=== PATIENT | male | born 1975 | race Hispanic/Latino ===

== ENCOUNTER 2017-11-15 11:45 | Emergency (ER) | payer MEDICARE ==
[2017-11-15 12:21] LABS: Basophils % (Auto) 0.3 % (0.0-1.8); Eosinophils # (Auto) 0.1 K/mm3 (0.0-0.4); Eosinophils % (Auto) 0.9 % (0.0-4.3); Hematocrit 42.9 % (35.5-45.6); Hemoglobin 14.5 gm/dl (11.8-15.2); Lymphocytes # (Auto) 0.8 K/mm3 (1.2-5.4); Lymphocytes % (Auto) 7.8 % (13.4-35.0); Mean Corpuscular HGB Conc 34 % (32-34); Mean Corpuscular Hemoglobin 30 pg (28-32); Mean Corpuscular Volume 90 fl (84-94); Monocytes # (Auto) 0.7 K/mm3 (0.0-0.8); Monocytes % (Auto) 6.9 % (0.0-7.3); Platelet Count 177 K/mm3 (140-440); Red Blood Count 4.79 M/mm3 (3.65-5.03); Red Cell Distribution Width 14.6 % (13.2-15.2)
--- NOTE | 2017-11-15 12:23 | Emergency Department Report ---
ED General Adult HPI - General Chief complaint: Syncope Stated complaint: LACERATION ABOVE RIGHT EYE, SYNCOPE Time Seen by Provider: 11/15/17 12:20 Source: patient Mode of arrival: Ambulatory Limitations: No Limitations - History of Present Illness Initial comments: Patient is a 42-year-old male who is presenting status post seizure with a laceration on the forehead. Patient states that he has a history of traumatic brain injury and takes Keppra for seizures. Patient's been out of his Keppra for several months. Patient has seizure this morning that resulted in a fall. Patient's has a laceration to the right forehead. Patient states he has a generalized headache that is 6 out of 10 in severity. There is no neck pain or injury at this time. Patient denies any nausea vomiting diarrhea fevers chills no rigidity at this time - Related Data Previous Rx's Medication Instructions Recorded Last Taken Type Ibuprofen [Motrin] 800 mg PO Q8HR PRN #15 tablet 11/15/17 Unknown Rx levETIRAcetam [Keppra] 500 mg PO BID #60 tablet 11/15/17 Unknown Rx Allergies Allergy/AdvReac Type Severity Reaction Status Date / Time No Known Allergies Allergy Verified 03/15/15 05:04 ED Review of Systems ROS: Stated complaint: LACERATION ABOVE RIGHT EYE, SYNCOPE Other details as noted in HPI Comment: All other systems reviewed and negative ED Past Medical Hx - Past Medical History Previous Medical History?: Yes Hx Hypertension: Yes Hx Diabetes: Yes Hx Seizures: Yes - Surgical History Past Surgical History?: Yes 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 Surgical History: 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) - Social History Smoking Status: Current Every Day Smoker Substance Use Type: Alcohol, Prescribed - Medications Home Medications: Home Medications Medication Instructions Recorded Confirmed Last Taken Type Ibuprofen [Motrin] 800 mg PO Q8HR PRN #15 tablet 11/15/17 Unknown Rx levETIRAcetam [Keppra] 500 mg PO BID #60 tablet 11/15/17 Unknown Rx ED Physical Exam - General Limitations: No Limitations General appearance: alert, in no apparent distress - Head Head exam: Present: normocephalic, other (4 cm laceration at the right eyebrow) - Eye Eye exam: Present: normal appearance - ENT ENT exam: Present: mucous membranes moist - Neck Neck exam: Present: normal inspection - Respiratory Respiratory exam: Present: normal lung sounds bilaterally. Absent: respiratory distress - Cardiovascular Cardiovascular Exam: Present: regular rate, normal rhythm. Absent: systolic murmur, diastolic murmur, rubs, gallop - GI/Abdominal GI/Abdominal exam: Present: soft, normal bowel sounds - Rectal Rectal exam: Present: deferred - Extremities Exam Extremities exam: Present: normal inspection - Back Exam Back exam: Present: normal inspection - Neurological Exam Neurological exam: Present: alert, oriented X3, CN II-XII intact, other (GCS of 15) - Psychiatric Psychiatric exam: Present: normal affect, normal mood - Skin Skin exam: Present: warm, dry, intact, normal color. Absent: rash ED Course Vital Signs 11/15/17 11:48 Temperature 97.8 F Pulse Rate 95 H Respiratory 22 Rate Blood Pressure 118/67 O2 Sat by Pulse 96 Oximetry - Laceration /Wound Repair Right Face Wound Location: head Wound Length (cm): 4 Wound's Depth, Shape: into muscle Wound Explored: clean Irrigated w/ Saline (ccs): 200 Betadine Prep?: Yes Anesthesia: 1% Lidocaine Suture Size/Type: 5:0, nylon Number of Sutures: 10 (running sutures) Layer Closure?: Yes Deep Layer Suture Size/Type: 5:0 Number Deep Layer Sutures: 4 Sterile Dressing Applied?: Yes Progress: Patient tolerated procedure well. There are no complications. ED Medical Decision Making - Lab Data Result diagrams: 11/15/17 12:05 11/15/17 12:05 - Medical Decision Making Patient loaded with Keppra. Patient's CT head and facial bones show no acute process. Discharged home at this time we'll refill of his Kera Critical care attestation.: If time is entered above; I have spent that time in minutes in the direct care of this critically ill patient, excluding procedure time. ED Disposition Clinical Impression: Laceration, Seizure, Medical non-compliance Closed head injury Qualifiers: Encounter type: initial encounter Qualified Code(s): S09.90XA - Unspecified injury of head, initial encounter Disposition: TO HOME OR SELFCARE Is pt being admited?: No Does the pt Need Aspirin: No Condition: Fair Instructions: Laceration (ED), Suture Care (ED), Minor Head Injury (ED), Epilepsy (ED) Additional Instructions: Sutures need to be removed in 5-7 days Prescriptions: Ibuprofen [Motrin] 800 mg PO Q8HR PRN #15 tablet PRN Reason: Pain levETIRAcetam [Keppra] 500 mg PO BID #60 tablet Referrals: PRIMARY CARE, [Primary Care Provider] - 3-5 Days
[2017-11-15] MEDS ORDERED: XYLOCAINE 1% 20 mL INFILTRATI ONE (12:24)
[2017-11-15] MEDS ORDERED: NACL 0.9% 1000 ML 1,000 ML IV ONE (12:24)
[2017-11-15] MEDS ORDERED: TORADOL IV ONE (12:24)
[2017-11-15 12:30] LABS: INR 0.95 (0.87-1.13)
[2017-11-15 12:45] LABS: BUN/Creatinine Ratio 19; Blood Urea Nitrogen 17 mg/dL (9-20); Calcium 9.1 mg/dL (8.4-10.2); Hemolysis Index 34
[2017-11-15] MEDS ORDERED: KEPPRA 1,000 MG/NS 0.75% 100ML 1,000 MG/100 ML BAG IV ONE (12:55)
--- NOTE | 2017-11-15 13:58 | Cat Scan Report ---
CT HEAD WITHOUT CONTRAST: HISTORY: Fall with right hand injury. TECHNIQUE: Sequential 2.5mm CT images. COMPARISON: none. FINDINGS: Right occipital craniectomy changes and right parietal ventricular shunt are noted. Correlate with history. Soft tissue laceration and small hematoma is identified in the right frontal region. Cerebral Parenchyma: Within normal limits. Cerebellum: Within normal limits. Brainstem: Within normal limits. Ventricles: Normal. Sella: Normal. Extra-axial spaces: Normal. Basal Cisterns: Normal. Intracranial Hemorrhage: None. Midline Shift: None. Calvarium: Normal. Sinuses: Normal. Mastoid Air Cells: Normal. Visualized Orbits: Normal. IMPRESSION: Right frontal soft tissue laceration and small hematoma. Surgical changes as described. No acute intracranial process is identified.
--- NOTE | 2017-11-15 14:00 | Cat Scan Report ---
CT FACIAL BONES WITHOUT CONTRAST: HISTORY: Following the right facial injury. TECHNIQUE: Helical CT images with sagittal and coronal CT reformations. FINDINGS: Soft tissue laceration in the right supraorbital region and small hematoma are identified. All paranasal sinuses are clear. No sinus wall fracture, fluid level or opacification. The orbital cavities are symmetric and intact. The mandible is intact. The skull base and upper cervical spine demonstrate no evidence for acute injury. IMPRESSION: Soft tissue injury as described. No facial bone fracture is detected.
[2017-11-15] MEDS ORDERED: NACL 0.9% 500 ML 500 ML IV ONE (14:50)
[2017-11-15 14:57] VITALS: BP 112/66
--- NOTE | 2017-11-15 15:42 | XRay Report ---
AP CHEST: HISTORY: Cough There is poor inspiration. Mild bilateral perihilar prominence is identified. This could represent congestive changes or bronchiolitis. No consolidation, pleural effusion or pneumothorax. Normal heart size. IMPRESSION: Mild bilateral perihilar prominence as described.
== END 2017-11-15 16:25 | disposition home or self-care (01) ==
LOC: ED 11:45
DX: S01.111A Laceration without foreign body of right eyelid and periocular area, initial encounter (principal); G40.909 Epilepsy, unspecified, not intractable, without status epilepticus; I10 Essential (primary) hypertension; E11.9 Type 2 diabetes mellitus without complications; F17.200 Nicotine dependence, unspecified, uncomplicated; X58.XXXA Exposure to other specified factors, initial encounter; Y93.89 Activity, other specified; Y92.89 Other specified places as the place of occurrence of the external cause; Y99.8 Other external cause status
CPT/HCPCS: 12052; 36415; 70450; 70486; 71045; 80048; 84484; 85025; 85610; 85670; 85730; 93005; 93010; 96361; 96374; 96375; 99285; J1885; J1953; J7030; J7040

== ENCOUNTER 2017-12-20 09:39 | Outpatient (CLI) | payer MEDICARE ==
[2017-12-20 10:27] LABS: Hemoglobin 13.9 gm/dl (11.8-15.2); Mean Corpuscular HGB Conc 33 % (32-34); Mean Corpuscular Hemoglobin 30 pg (28-32); Mean Corpuscular Volume 89 fl (84-94); Platelet Count 205 K/mm3 (140-440); Red Cell Distribution Width 15.1 % (13.2-15.2)
[2017-12-20 10:41] LABS: Alanine Aminotransferase 58 units/L (7-56); Albumin 3.8 g/dL (3.9-5); BUN/Creatinine Ratio 24; Blood Urea Nitrogen 12 mg/dL (9-20); Calcium 8.5 mg/dL (8.4-10.2); Hemolysis Index 10
--- NOTE | 2017-12-20 11:12 | XRay Report ---
CHEST 2 VIEWS INDICATION: Cough. 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 Normal cardiomediastinal silhouette. Clear lungs. Stable mid to lower thoracic spine degenerative spurring. CONCLUSION: No acute disease, as described. Thank you for the opportunity to participate in this patient's care.
== END 2017-12-20 09:40 | disposition home or self-care (01) ==
LOC: XRAY 09:39
PROVIDERS: ATTEND Family Medicine
DX: G40.89 Other seizures (principal); R60.9 Edema, unspecified; R05 Cough; M53.84 Other specified dorsopathies, thoracic region; Z98.2 Presence of cerebrospinal fluid drainage device; Z79.899 Other long term (current) drug therapy
CPT/HCPCS: 36415; 71046; 80053; 80177; 82607; 83880; 84443; 85027

== ENCOUNTER 2018-02-11 21:08 | Emergency (ER) | payer MEDICARE ==
[2018-02-11 21:42] VITALS: BP 120/82
[2018-02-11] MEDS ORDERED: NORCO 5/325 ONE (22:39)
[2018-02-11] MEDS ORDERED: NORCO 5/325 PO ONE (22:41)
--- NOTE | 2018-02-11 22:50 | XRay Report ---
FINAL REPORT EXAM: XR HUMERUS 2+V LT HISTORY: pain and injury/fall TECHNIQUE: Left humerus three views PRIORS: None. FINDINGS: There is acute traumatic fracture through the humeral neck with extension through the head of the humerus and along greater tuberosity. Articular surface appears intact. AC joint appears intact. No additional acute fractures are identified. No evidence for dislocation. IMPRESSION: Acute fracture through the left humeral head and neck
--- NOTE | 2018-02-11 22:51 | XRay Report ---
FINAL REPORT EXAM: XR FOREARM LT HISTORY: pain and injury/fall TECHNIQUE: PRIORS: Left forearm two views none. FINDINGS: No fracture is identified. The joint spaces are within normal limits. No focal bony lesion identified. No radiopaque foreign body seen. IMPRESSION: Negative no acute abnormality.
--- NOTE | 2018-02-11 23:17 | Emergency Department Report ---
ED Upper Extremity Inj HPI - General Chief Complaint: Extremity Injury, Upper Stated Complaint: LEFTARM PAIN Time Seen by Provider: 02/11/18 23:01 Source: patient Mode of arrival: Ambulatory Limitations: No Limitations, Language Barrier - History of Present Illness Initial Comments: Patient 42-year-old white male states he tripped and fell tonight while walking his dog landing on his left shoulder now complaining of pain and tingling the fingers there is no open wound or laceration or abrasion shoulder hurts with movement per patient MD Complaint: Injury to:: left, shoulder Onset/Timin -: hour(s) Other Extremity Injury: Shoulder: Left Other Injuries: none Handedness: right Place: home, outdoors Severity scale (0 -10): 5 Improves With: none Worsens With: movement of extremity Context: fall Associated Symptoms: heard/felt popping sensat. denies: weakness, numbness, neck pain, suspects foreign body, nausea/vomiting - Related Data Previous Rx's Medication Instructions Recorded Last Taken Type ALBUTEROL Inhaler [ProAir HFA 2 puff IH QID PRN #1 inhalation 11/15/17 Unknown Rx Inhaler] Azithromycin [Zithromax] 250 mg PO DAILY #6 tablet 11/15/17 Unknown Rx Benzonatate [Tessalon Perle] 100 mg PO TID #9 capsule 11/15/17 Unknown Rx Ibuprofen [Motrin] 800 mg PO Q8HR PRN #15 tablet 11/15/17 Unknown Rx levETIRAcetam [Keppra] 500 mg PO BID #60 tablet 11/15/17 Unknown Rx HYDROcodone/ACETAMINOPHEN [Redding 1 each PO QID #15 tablet 02/11/18 Unknown Rx 7.5-325 Tablet] Allergies Allergy/AdvReac Type Severity Reaction Status Date / Time No Known Allergies Allergy Verified 03/15/15 05:04 ED Review of Systems ROS: Stated complaint: LEFTARM PAIN Other details as noted in HPI Constitutional: denies: chills, fever Eyes: denies: eye pain, eye discharge, vision change ENT: denies: ear pain, throat pain Respiratory: denies: cough, shortness of breath, wheezing Cardiovascular: denies: chest pain, palpitations Endocrine: no symptoms reported Gastrointestinal: denies: abdominal pain, nausea, diarrhea Genitourinary: as per HPI Musculoskeletal: myalgia (left lateral shoulder pain ) Skin: denies: rash, lesions Neurological: denies: headache, weakness, paresthesias Psychiatric: denies: anxiety, depression Hematological/Lymphatic: denies: easy bleeding, easy bruising ED Past Medical Hx - Past Medical History Hx Hypertension: Yes Hx Diabetes: Yes Hx Seizures: Yes - Surgical History Additional Surgical History: 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 shunt (2009) - Social History Smoking Status: Current Every Day Smoker Substance Use Type: None - Medications Home Medications: Home Medications Medication Instructions Recorded Confirmed Last Taken Type ALBUTEROL Inhaler [ProAir HFA 2 puff IH QID PRN #1 inhalation 11/15/17 Unknown Rx Inhaler] Azithromycin [Zithromax] 250 mg PO DAILY #6 tablet 11/15/17 Unknown Rx Benzonatate [Tessalon Perle] 100 mg PO TID #9 capsule 11/15/17 Unknown Rx Ibuprofen [Motrin] 800 mg PO Q8HR PRN #15 tablet 11/15/17 Unknown Rx levETIRAcetam [Keppra] 500 mg PO BID #60 tablet 11/15/17 Unknown Rx HYDROcodone/ACETAMINOPHEN [Red[place] 1 each PO QID #15 tablet 02/11/18 Unknown Rx 7.5-325 Tablet] ED Physical Exam - General Limitations: No Limitations, Language Barrier General appearance: alert, in no apparent distress - Head Head exam: Present: atraumatic, normocephalic - Eye Eye exam: Present: normal appearance - ENT ENT exam: Present: mucous membranes moist - Neck Neck exam: Present: normal inspection, full ROM. Absent: lymphadenopathy, thyromegaly - Expanded Neck Exam Expanded Neck exam: Absent: tenderness, midline deformity, anterior neck swelling, thyroid mass, carotid bruit, tracheal deviation - Respiratory Respiratory exam: Present: normal lung sounds bilaterally. Absent: respiratory distress - Cardiovascular Cardiovascular Exam: Present: regular rate, normal rhythm. Absent: systolic murmur, diastolic murmur, rubs, gallop - GI/Abdominal GI/Abdominal exam: Present: soft, normal bowel sounds. Absent: distended, tenderness, guarding, rebound, rigid, organomegaly, mass, bruit, pulsatile mass - Rectal Rectal exam: Present: deferred - Extremities Exam Extremities exam: Present: tenderness, normal capillary refill, calf tenderness. Absent: pedal edema, joint swelling - Expanded Upper Extremity Exam Left Shoulder Exam: Present: tenderness, swelling, other (left lateral shoulder tenderness mild swelling no ecchymosis no deformity no eythema pain with movemen and palpation). Absent: abrasion, laceration, ecchymosis, deformity, crepidus, dislocation, erythema, tenderness over AC joint Upper Arm exam: Present: tenderness, swelling. Absent: abrasion, laceration, ecchymosis, deformity, crepidus, dislocation, erythema Elbow exam: Present: normal inspection, full ROM Forearm Wrist exam: Present: normal inspection, full ROM Hand Wrist exam: Present: normal inspection, full ROM Neuro motor exam: Present: wrist extension intact, thumb opposition intact, thumb IP flexion intact, thumb adduction intact, fingers 2-5 abduction intact Neurosensory exam: Present: 2-point discrimination Vascular: Present: normal capillary refill, radial pulse, brachial pulse, ulnar pulse. Absent: vascular compromise, Pallo, pulse deficit radial art, pulse deficit ulnar art, pulse deficit brachial art - Back Exam Back exam: Present: normal inspection, full ROM. Absent: tenderness, CVA tenderness (R), CVA tenderness (L), muscle spasm, paraspinal tenderness, vertebral tenderness, rash noted - Neurological Exam Neurological exam: Present: alert, oriented X3, CN II-XII intact, normal gait, reflexes normal - Expanded Neurological Exam Expanded Patient oriented to: Present: person, place, time Speech: Present: fluid speech Cranial nerves: EOM's Intact: Normal, Gag Reflex: Normal, Tongue Deviation: Normal, Nystagmus: Normal, Facial Sensation: Normal Sensory exam: Upper Extremity Light Touch: Normal, Upper Extremity Temperature: Normal, UE 2 Point Discrimination: Normal Motor strength exam: RUE: 5, LUE: 5, RLE: 5, LLE: 5 DTR: bicep (R): 2+, bicep (L): 2+, tricep (R): 2+, tricep (L): 2+ Best Eye Response (Sims): (4) open spontaneously Best Motor Response (Sarika): (6) obeys commands Best Verbal Response (Sims): (5) oriented Sarika Total: 15 - Psychiatric Psychiatric exam: Present: normal affect, normal mood - Skin Skin exam: Present: warm, dry, intact, normal color. Absent: rash ED Course Vital Signs 04/08/18 21:35 Temperature 97.9 F Pulse Rate 87 Respiratory 18 Rate Blood Pressure 120/82 O2 Sat by Pulse 100 Oximetry ED Medical Decision Making - Radiology Data Radiology results: report reviewed, image reviewed acute fracture through humeral head and neck - Medical Decision Making Patient 42-year-old white male states he tripped and fell tonight while walking his dog landing on his left shoulder now complaining of pain and tingling the fingers there is no open wound or laceration or abrasion shoulder hurts with movement per patient , exam: no ecchymosis mild swelling rom restricted by pain grisps equal , rad pulse +2, no numbness , unble to tolerare shoulder drop due to pain, pronation supination 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 sling and swath lortab, follow up with ortho pt verbalized agreement and understanding of same. Critical care attestation.: If time is entered above; I have spent that time in minutes in the direct care of this critically ill patient, excluding procedure time. ED Disposition Clinical Impression: Closed fracture of proximal end of left humerus Qualifiers: Encounter type: initial encounter Fracture morphology: other fracture Fracture alignment: nondisplaced Qualified Code(s): S42.295A - Other nondisplaced fracture of upper end of left humerus, initial encounter for closed fracture Disposition: DC-01 TO HOME OR SELFCARE Is pt being admited?: No Does the pt Need Aspirin: No Condition: Good Instructions: Arm Fracture in Adults (ED) Prescriptions: HYDROcodone/ACETAMINOPHEN [Redding 7.5-325 Tablet] 1 each PO QID #15 tablet Referrals: ANDRE FITZGERALD MD [Staff Physician] - 3-5 Days Forms: Work/School Release Form(ED) Time of Disposition: 23:29
== END 2018-02-11 23:56 | disposition home or self-care (01) ==
LOC: ED 21:08
DX: S42.202A Unspecified fracture of upper end of left humerus, initial encounter for closed fracture (principal); I10 Essential (primary) hypertension; E11.9 Type 2 diabetes mellitus without complications; F17.200 Nicotine dependence, unspecified, uncomplicated; W01.0XXA Fall on same level from slipping, tripping and stumbling without subsequent striking against object, initial encounter; Y93.89 Activity, other specified; Y92.89 Other specified places as the place of occurrence of the external cause; Y99.8 Other external cause status
CPT/HCPCS: 99283

== ENCOUNTER 2018-02-23 08:38 | Outpatient (CLI) | payer MEDICARE ==
--- NOTE | 2018-02-23 13:14 | XRay Report ---
LEFT SHOULDER RADIOGRAPHS INDICATION: Left shoulder pain. COMPARISON: 02/11/2018 left humerus views. FINDINGS: Frontal and right views of the left shoulder demonstrate stable left humeral neck fracture with the humeral articular surface well positioned against the glenoid. Intact acromioclavicular joint with normal imaged scapula, ribs and lung. CONCLUSION: No significant interval change in known left humeral neck fracture, as described. Thank you for the opportunity to participate in this patient's care.
== END 2018-02-23 08:39 | disposition home or self-care (01) ==
LOC: XRAY 08:38
PROVIDERS: ATTEND Orthopaedic Surgery
DX: M25.512 Pain in left shoulder (principal); S42.292D Other displaced fracture of upper end of left humerus, subsequent encounter for fracture with routine healing; X58.XXXD Exposure to other specified factors, subsequent encounter

== ENCOUNTER 2018-03-01 14:17 | Emergency (ER) | payer MEDICARE ==
[2018-03-01 14:45] VITALS: BP 128/78
--- NOTE | 2018-03-01 16:38 | Emergency Department Report ---
ED Recheck HPI - General Chief Complaint: Extremity Problem,Nontraumatic Stated Complaint: LEFT SHOULDER PAIN Time Seen by Provider: 03/01/18 16:01 Source: patient Mode of arrival: Ambulatory Limitations: No Limitations - History of Present Illness Initial Comments: This is a 42-year-old male nontoxic, well nourished in appearance, no acute signs of distress presents to the ED with c/o of left shoulder pain status post fall. Patient stated he was diagnosed with left shoulder fracture couple of weeks ago and followed Dr. Ivy. Patient stated his next appointment is next Monday. Patient denies any new trauma. Patient stated he is in need of Percocet refill for pain. Patient denies any joint redness, joint swelling, fever, chills, nausea, vomiting, chest pain or shortness of breathe. Patient denies any allergies or significant past medical history. MD Complaint: medication refill request Initial Visit For: other (fracture humerus bone) Returns Today for: request for prescription Symptoms Since Prior Visit: no new symptoms Associated Symptoms: none. denies: fever, chills, chest pain, shortness of breath, rash, malaise, nasuea, abdominal pain - Related Data Previous Rx's Medication Instructions Recorded Last Taken Type ALBUTEROL Inhaler [ProAir HFA 2 puff IH QID PRN #1 inhalation 11/15/17 Unknown Rx Inhaler] Azithromycin [Zithromax] 250 mg PO DAILY #6 tablet 11/15/17 Unknown Rx Benzonatate [Tessalon Perle] 100 mg PO TID #9 capsule 11/15/17 Unknown Rx Ibuprofen [Motrin] 800 mg PO Q8HR PRN #15 tablet 11/15/17 Unknown Rx levETIRAcetam [Keppra] 500 mg PO BID #60 tablet 11/15/17 Unknown Rx HYDROcodone/ACETAMINOPHEN [Celestine 1 each PO QID #15 tablet 02/11/18 Unknown Rx 7.5-325 Tablet] Ibuprofen [Motrin] 600 mg PO Q8H PRN #30 tablet 03/01/18 Unknown Rx Allergies Allergy/AdvReac Type Severity Reaction Status Date / Time No Known Allergies Allergy Verified 03/15/15 05:04 ED Review of Systems ROS: Stated complaint: LEFT SHOULDER PAIN Other details as noted in HPI Constitutional: denies: chills, fever Eyes: denies: eye pain, eye discharge, vision change ENT: denies: ear pain, throat pain Respiratory: denies: cough, shortness of breath, wheezing Cardiovascular: denies: chest pain, palpitations Endocrine: no symptoms reported Gastrointestinal: denies: abdominal pain, nausea, diarrhea Genitourinary: denies: urgency, dysuria Musculoskeletal: arthralgia. 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) - Social History Smoking Status: Current Every Day Smoker Substance Use Type: None - Medications Home Medications: Home Medications Medication Instructions Recorded Confirmed Last Taken Type ALBUTEROL Inhaler [ProAir HFA 2 puff IH QID PRN #1 inhalation 11/15/17 Unknown Rx Inhaler] Azithromycin [Zithromax] 250 mg PO DAILY #6 tablet 11/15/17 Unknown Rx Benzonatate [Tessalon Perle] 100 mg PO TID #9 capsule 11/15/17 Unknown Rx Ibuprofen [Motrin] 800 mg PO Q8HR PRN #15 tablet 11/15/17 Unknown Rx levETIRAcetam [Keppra] 500 mg PO BID #60 tablet 11/15/17 Unknown Rx HYDROcodone/ACETAMINOPHEN [Celestine 1 each PO QID #15 tablet 02/11/18 Unknown Rx 7.5-325 Tablet] Ibuprofen [Motrin] 600 mg PO Q8H PRN #30 tablet 03/01/18 Unknown Rx ED Physical Exam - General Limitations: No Limitations General appearance: alert, in no apparent distress - Head Head exam: Present: atraumatic, normocephalic - Eye Eye exam: Present: normal appearance - ENT ENT exam: Present: mucous membranes moist - Neck Neck exam: Present: normal inspection - Respiratory Respiratory exam: Present: normal lung sounds bilaterally. Absent: respiratory distress - Cardiovascular Cardiovascular Exam: Present: regular rate, normal rhythm. Absent: systolic murmur, diastolic murmur, rubs, gallop - GI/Abdominal GI/Abdominal exam: Present: soft, normal bowel sounds - Rectal Rectal exam: Present: deferred - Extremities Exam Extremities exam: Present: normal inspection, tenderness, normal capillary refill. Absent: full ROM, pedal edema, joint swelling, calf tenderness - Expanded Upper Extremity Exam Left General: Present: normal inspection Shoulder Exam: Present: normal inspection, tenderness. Absent: full ROM, swelling, abrasion, laceration, ecchymosis, deformity, crepidus, dislocation, erythema, tenderness over AC joint Upper Arm exam: Present: normal inspection, full ROM Elbow exam: Present: normal inspection, full ROM Forearm Wrist exam: Present: normal inspection, full ROM Hand Wrist exam: Present: normal inspection, full ROM Neuro motor exam: Present: wrist extension intact, thumb opposition intact, thumb IP flexion intact, thumb adduction intact, fingers 2-5 abduction intact Neurosensory exam: Present: 2-point discrimination, radial nerve intact, ulnar nerve intact, median nerve intact Vascular: Present: vascular compromise, normal capillary refill, radial pulse, brachial pulse, ulnar pulse - Back Exam Back exam: Present: normal inspection, full ROM - Neurological Exam Neurological exam: Present: alert, oriented X3, normal gait - Psychiatric Psychiatric exam: Present: normal affect, normal mood - Skin Skin exam: Present: warm, dry, intact, normal color. Absent: rash ED Course Vital Signs 03/01/18 14:41 Temperature 97.8 F Pulse Rate 71 Respiratory 18 Rate Blood Pressure 128/78 O2 Sat by Pulse 99 Oximetry - Reevaluation(s) Reevaluation #1: 03/01/18 16:39 Patient is speaking in full sentences with no signs of distress noted. ED Recheck MDM - Medical Decision Making This is a 42-year-old male that presents with medication refill. Patient stable was examined by me. Patient is requesting for Percocet refill. I ran the [facility] database which indicates the patient received 10 mg of Celestine on 02/26/2018 with 30 pills for 8 days. Due to this, patient is discharged with Motrin. Patient denies any new symptoms. Patient was referred to Follow-up with a orthopedic doctor in 3-5 days or if symptoms worsen and continue return to emergency room as soon as possible. At time of discharge, the patient does not seem toxic or ill in appearance. No acute signs of distress noted. Patient agrees to discharge treatment plan of care. No further questions noted by the patient. Critical care attestation.: If time is entered above; I have spent that time in minutes in the direct care of this critically ill patient, excluding procedure time. ED Disposition Clinical Impression: Medication refill Disposition: - TO HOME OR SELFCARE Is pt being admited?: No Does the pt Need Aspirin: No Condition: Stable Additional Instructions: Follow-up with a orthopedic doctor in 3-5 days or if symptoms worsen and continue return to emergency room as soon as possible. Prescriptions: Ibuprofen [Motrin] 600 mg PO Q8H PRN #30 tablet PRN Reason: Pain Referrals: PRIMARY CAREMD [Primary Care Provider] - 3-5 Days ANDRE IVY MD [Staff Physician] - 3-5 Days [facility] [Outside] - 3-5 Days
[2018-03-01] MEDS ORDERED: MOTRIN PO ONE (16:45)
== END 2018-03-01 16:56 | disposition home or self-care (01) ==
LOC: ED 14:17
DX: M25.512 Pain in left shoulder (principal); I10 Essential (primary) hypertension; E11.9 Type 2 diabetes mellitus without complications; F17.200 Nicotine dependence, unspecified, uncomplicated
CPT/HCPCS: 99282

== ENCOUNTER 2018-03-09 16:41 | Outpatient (CLI) | payer MEDICARE | END 2018-03-09 16:42 | disposition home or self-care (01) | LOC: VAS 16:41 | PROVIDERS: ATTEND Family Medicine | DX: M79.604 Pain in right leg (principal); M79.605 Pain in left leg; R60.0 Localized edema | CPT/HCPCS: 93970 ==

== ENCOUNTER 2018-05-02 22:51 | Emergency (ER) | payer MEDICARE ==
[2018-05-02] MEDS ORDERED: TYLENOL PO ONE (23:05)
[2018-05-02] MEDS ORDERED: TYLENOL ONE (23:06)
[2018-05-02 23:08] VITALS: BP 147/85
--- NOTE | 2018-05-02 23:53 | XRay Report ---
FINAL REPORT EXAM: XR SHOULDER 2+V LT HISTORY: pain and LROM s/p L shoulder injury TECHNIQUE: Left shoulder two views PRIORS: Comparison made to the exam of February 11, 2018 FINDINGS: There is fracture through the neck of the humerus. There is some bony callus formation along with some displacement. There is some lucency remaining along the fracture lines. Findings are concerning for additional acute fracture in addition to the chronic findings. IMPRESSION: Healing fracture of the humeral neck. There is some lucency remaining through the fracture line and additional acute component is not excluded.
[2018-05-03] MEDS ORDERED: MOTRIN PO ONE (05:12)
[2018-05-03] MEDS ORDERED: PERCOCET 5/325 ONE (05:12)
[2018-05-03] MEDS ORDERED: PERCOCET 5/325 PO ONE (05:14)
--- NOTE | 2018-05-03 05:49 | Emergency Department Report ---
Upper Extremity - HPI Chief Complaint: Extremity Injury, Upper Stated Complaint: ARM PAIN Time Seen by Provider: 05/03/18 05:12 Upper Extremity: Left Shoulder Occurred When: Today Mechanism: Fall Severity: severe Symptoms: Yes Pain with Movement, Yes Limited Range of Movement, Yes Numbness, Yes Swelling, No Bruising/Ecchymosis, No Laceration or Abrasion Other History: 42-year-old male reinjured of the left shoulder. Patient reports he fell out the bed and landed on his left shoulder tonight. Patient reports that he had injured his shoulder back in February and was scheduled to start physical therapy. Patient reports his pain is a 10 out of 10. Has a past medical history of brain surgery where shunt in 2009, hypertension, diabetes. ED Review of Systems ROS: Stated complaint: ARM PAIN Other details as noted in HPI Musculoskeletal: joint swelling (left shoulder), arthralgia (left shoulder) ED Past Medical Hx - Past Medical History Previous Medical History?: Yes Hx Hypertension: Yes Hx Diabetes: Yes Hx Seizures: Yes - Surgical History Past Surgical History?: Yes Additional Surgical History: CONDITIONER TUMBLER shunt (2009) - Social History Smoking Status: Current Every Day Smoker Substance Use Type: None - Medications Home Medications: Home Medications Medication Instructions Recorded Confirmed Last Taken Type ALBUTEROL Inhaler [ProAir HFA 2 puff IH QID PRN #1 inhalation 11/15/17 Unknown Rx Inhaler] Azithromycin [Zithromax] 250 mg PO DAILY #6 tablet 11/15/17 Unknown Rx Benzonatate [Tessalon Perle] 100 mg PO TID #9 capsule 11/15/17 Unknown Rx levETIRAcetam [Keppra] 500 mg PO BID #60 tablet 11/15/17 Unknown Rx HYDROcodone/ACETAMINOPHEN [[place] 1 each PO QID #15 tablet 02/11/18 Unknown Rx 7.5-325 Tablet] Ibuprofen [Motrin] 600 mg PO Q8H PRN #30 tablet 03/01/18 Unknown Rx Ibuprofen [Motrin 800 MG tab] 800 mg PO Q8HR PRN #30 tablet 05/03/18 Unknown Rx oxyCODONE /ACETAMINOPHEN [Percocet 1 tab PO Q6HR PRN #12 tablet 05/03/18 Unknown Rx 5/325] Upper Extremity Exam - Exam General: Vital signs noted. No distress. Alert and acting appropriately. Shoulder Exam: Yes Shoulder Tenderness, No Clavicle Tenderness, No Normal Range of Motion in Shoulder, No Shoulder Deformity, No AC Joint Tenderness Arm Exam: Yes Arm/Humerus Tenderness, No Arm Deformity Elbow: No Elbow Tenderness, No Normal Range of Motion in Elbow, No Elbow Deformity Forearm: Yes Forearm Tenderness, Yes Pain with Pronation, Yes Pain with Supination, No Forearm Deformity Wrist: Yes Normal ROM in Wrist, No Wrist Tenderness, No Wrist Deformity, No Snuffbox Tenderness, No Pain with Axial Thumb Compression Hand: Yes Normal ROM in Digit(s), No Hand Tenderness, No Hand Deformity, No Digit Tenderness, No Digit(s) Deformity, No Tendon Dysfunction CMS Exam: No Broken Skin, No Normal Distal Pulses, No Normal Capillary Refill, No Normal Distal Sensation ED Course Vital Signs 05/02/18 05/02/18 23:03 23:10 Temperature 98.1 F Pulse Rate 72 Respiratory 18 18 Rate Blood Pressure 147/85 O2 Sat by Pulse 96 Oximetry ED Medical Decision Making - Radiology Data Radiology results: report reviewed, image reviewed FINAL REPORT EXAM: XR SHOULDER 2+V LT HISTORY: pain and LROM s/p L shoulder injury TECHNIQUE: Left shoulder two views PRIORS: Comparison made to the exam of February 11, 2018 FINDINGS: There is fracture through the neck of the humerus. There is some bony callus formation along with some displacement. There is some lucency remaining along the fracture lines. Findings are concerning for additional acute fracture in addition to the chronic findings. IMPRESSION: Healing fracture of the humeral neck. There is some lucency remaining through the fracture line and additional acute component is not excluded. Transcribed By: VERÓNICA Dictated By: ТАТЬЯНА OLIVEIRA MD Electronically Authenticated By: ТАТЬЯНА OLIVEIRA MD Signed Date/Time: 05/02/182348 DD/ 48 TD/TT: 05/02/182348 - Medical Decision Making Patient has been evaluated by this provider in fast track. Patient has been given Tylenol and ibuprofen in triage Patient has been given 2 Percocet for pain management. X-ray of shoulder and humerus completed We'll place patient in a sugar tong splint and have him follow up with Dr. Ivy in the next 24-48 hours. We will discharge patient on Percocet 1 tablet every 6 hours as well as ibuprofen every 8 hours as needed for pain. Critical care attestation.: If time is entered above; I have spent that time in minutes in the direct care of this critically ill patient, excluding procedure time. ED Disposition Clinical Impression: Fracture of humeral head, closed Qualifiers: Encounter type: initial encounter Laterality: left Qualified Code(s): S42.292A - Other displaced fracture of upper end of left humerus, initial encounter for closed fracture Disposition: TO HOME OR SELFCARE Is pt being admited?: No Does the pt Need Aspirin: No Condition: Stable Instructions: Arm Fracture in Adults (ED) Additional Instructions: Please take pain medication as needed. Please follow-up with your orthopedist provider in the next 24-48 hours. Prescriptions: Ibuprofen [Motrin 800 MG tab] 800 mg PO Q8HR PRN #30 tablet PRN Reason: Pain oxyCODONE /ACETAMINOPHEN [Percocet 5/325] 1 tab PO Q6HR PRN #12 tablet PRN Reason: Pain Referrals: PRIMARY CAREMD [Primary Care Provider] - 3-5 Days ANDRE IVY MD [Staff Physician] - 3-5 Days Forms: Work/School Release Form(ED), Accompanied Note
== END 2018-05-03 06:25 | disposition home or self-care (01) ==
LOC: ED 22:51
DX: S42.292A Other displaced fracture of upper end of left humerus, initial encounter for closed fracture (principal); I10 Essential (primary) hypertension; E11.9 Type 2 diabetes mellitus without complications; F17.200 Nicotine dependence, unspecified, uncomplicated; X58.XXXA Exposure to other specified factors, initial encounter; Y93.89 Activity, other specified; Y92.89 Other specified places as the place of occurrence of the external cause; Y99.8 Other external cause status

== ENCOUNTER 2018-11-13 10:52 | Emergency (ER) | payer MEDICARE ==
[2018-11-13] MEDS ORDERED: MORPHINE IV ONE (12:16)
[2018-11-13] MEDS ORDERED: ZOFRAN IV ONE (12:16)
[2018-11-13 13:23] LABS: Basophils # (Auto) 0.1 K/mm3 (0.0-0.1); Basophils % (Auto) 0.5 % (0.0-1.8); Eosinophils # (Auto) 0.2 K/mm3 (0.0-0.4); Eosinophils % (Auto) 1.3 % (0.0-4.3); Hemoglobin 13.4 gm/dl (11.8-15.2); Lymphocytes % (Auto) 17.4 % (13.4-35.0); Mean Corpuscular HGB Conc 33 % (32-34); Mean Corpuscular Volume 92 fl (84-94); Monocytes # (Auto) 1.2 K/mm3 (0.0-0.8); Monocytes % (Auto) 9.9 % (0.0-7.3); Platelet Count 218 K/mm3 (140-440); Red Blood Count 4.46 M/mm3 (3.65-5.03); Red Cell Distribution Width 13.7 % (13.2-15.2)
[2018-11-13 13:40] LABS: Alanine Aminotransferase 54 units/L (7-56); Albumin 3.7 g/dL (3.9-5); BUN/Creatinine Ratio 20; Blood Urea Nitrogen 14 mg/dL (9-20); Calcium 8.9 mg/dL (8.4-10.2); Hemolysis Index 19
--- NOTE | 2018-11-13 13:44 | Emergency Department Report ---
ED General Adult HPI - General Chief complaint: Back Pain/Injury Stated complaint: CANT STAND/PAIN Time Seen by Provider: 11/13/18 12:08 Source: patient Mode of arrival: Ambulatory Limitations: No Limitations - History of Present Illness Initial comments: The patient presents to the emergency department with a chief complaint of right flank pain 3 days. Patient describes the pain as sharp in nature with radiation into his right lower quadrant. Patient also endorses some nausea and vomiting but denies diarrhea. Patient denies chest pain, shortness breath, or headache. -: Sudden Location: abdomen Radiation: non-radiation Severity scale (0 -10): 7 Quality: stabbing, constant Consistency: constant Improves with: none Worsens with: none Associated Symptoms: denies other symptoms Treatments Prior to Arrival: none - Related Data Previous Rx's Medication Instructions Recorded Last Taken Type ALBUTEROL Inhaler (OR & NICU) 2 puff IH QID PRN #1 inhalation 11/15/17 Unknown Rx [ProAir HFA Inhaler] Azithromycin [Zithromax] 250 mg PO DAILY #6 tablet 11/15/17 Unknown Rx Benzonatate [Tessalon Perle] 100 mg PO TID #9 capsule 11/15/17 Unknown Rx levETIRAcetam [Keppra] 500 mg PO BID #60 tablet 11/15/17 Unknown Rx HYDROcodone/ACETAMINOPHEN [[place] 1 each PO QID #15 tablet 02/11/18 Unknown Rx 7.5-325 Tablet] Ibuprofen [Motrin] 600 mg PO Q8H PRN #30 tablet 03/01/18 Unknown Rx Ibuprofen [Motrin 800 MG tab] 800 mg PO Q8HR PRN #30 tablet 05/03/18 Unknown Rx oxyCODONE /ACETAMINOPHEN [Percocet 1 tab PO Q6HR PRN #12 tablet 05/03/18 Unknown Rx 5/325] Gabapentin [Neurontin] 400 mg PO BID #60 capsule 11/06/18 Unknown Rx ALBUTEROL Inhaler(NF) [VENTOLIN 2 puff IH Q4HR #1 inha 11/13/18 Unknown Rx Inhaler(NF)] HYDROcodone/APAP 5-325 [[place] 1 each PO Q6HR PRN #15 tablet 11/13/18 Unknown Rx 5/325] Allergies Allergy/AdvReac Type Severity Reaction Status Date / Time No Known Allergies Allergy Verified 11/10/18 11:29 ED Review of Systems ROS: Stated complaint: CANT STAND/PAIN Other details as noted in HPI Comment: All other systems reviewed and negative Constitutional: denies: chills, fever Eyes: denies: eye pain, eye discharge, vision change ENT: denies: ear pain, throat pain Respiratory: denies: cough, shortness of breath, wheezing Cardiovascular: denies: chest pain, palpitations Endocrine: no symptoms reported Gastrointestinal: abdominal pain. denies: nausea, diarrhea Genitourinary: denies: urgency, dysuria Musculoskeletal: denies: back pain, joint swelling, arthralgia Skin: denies: rash, lesions Neurological: denies: headache, weakness, paresthesias Psychiatric: denies: anxiety, depression Hematological/Lymphatic: denies: easy bleeding, easy bruising ED Past Medical Hx - Past Medical History Previous Medical History?: Yes Hx Hypertension: Yes Hx Diabetes: Yes Hx Seizures: Yes Additional medical history: Restless leg syndrome - Surgical History Past Surgical History?: Yes Additional Surgical History: [employer] shunt (2009) - Social History Smoking Status: Current Every Day Smoker Substance Use Type: None - Medications Home Medications: Home Medications Medication Instructions Recorded Confirmed Last Taken Type ALBUTEROL Inhaler (OR & NICU) 2 puff IH QID PRN #1 inhalation 11/15/17 Unknown Rx [ProAir HFA Inhaler] Azithromycin [Zithromax] 250 mg PO DAILY #6 tablet 11/15/17 Unknown Rx Benzonatate [Tessalon Perle] 100 mg PO TID #9 capsule 11/15/17 Unknown Rx levETIRAcetam [Keppra] 500 mg PO BID #60 tablet 11/15/17 Unknown Rx HYDROcodone/ACETAMINOPHEN [[place] 1 each PO QID #15 tablet 02/11/18 Unknown Rx 7.5-325 Tablet] Ibuprofen [Motrin] 600 mg PO Q8H PRN #30 tablet 03/01/18 Unknown Rx Ibuprofen [Motrin 800 MG tab] 800 mg PO Q8HR PRN #30 tablet 05/03/18 Unknown Rx oxyCODONE /ACETAMINOPHEN [Percocet 1 tab PO Q6HR PRN #12 tablet 05/03/18 Unknown Rx 5/325] Gabapentin [Neurontin] 400 mg PO BID #60 capsule 11/06/18 Unknown Rx ALBUTEROL Inhaler(NF) [VENTOLIN 2 puff IH Q4HR #1 inha 11/13/18 Unknown Rx Inhaler(NF)] HYDROcodone/APAP 5-325 [[place] 1 each PO Q6HR PRN #15 tablet 11/13/18 Unknown Rx 5/325] ED Physical Exam - General Limitations: No Limitations General appearance: alert, in no apparent distress - Head Head exam: Present: atraumatic, normocephalic - Eye Eye exam: Present: normal appearance - ENT ENT exam: Present: mucous membranes moist - Neck Neck exam: Present: normal inspection - Respiratory Respiratory exam: Present: normal lung sounds bilaterally. Absent: respiratory distress, wheezes, rales - Cardiovascular Cardiovascular Exam: Present: regular rate, normal rhythm. Absent: systolic murmur, diastolic murmur, rubs, gallop - GI/Abdominal GI/Abdominal exam: Present: soft, normal bowel sounds. Absent: distended, tenderness - Rectal Rectal exam: Present: deferred - Extremities Exam Extremities exam: Present: normal inspection - Back Exam Back exam: Present: normal inspection - Neurological Exam Neurological exam: Present: alert, oriented X3, CN II-XII intact. Absent: motor sensory deficit - Psychiatric Psychiatric exam: Present: normal affect, normal mood - Skin Skin exam: Present: warm, dry, intact, normal color. Absent: rash ED Course Vital Signs 11/13/18 11:00 Temperature 98.1 F Pulse Rate 98 H Respiratory 20 Rate Blood Pressure 132/73 O2 Sat by Pulse 95 Oximetry ED Medical Decision Making - Lab Data Result diagrams: 11/13/18 13:06 11/13/18 13:06 Lab Results 11/13/18 11/13/18 11/13/18 Range/Units 11:01 13:06 13:06 WBC 11.7 H (4.5-11.0) K/mm3 RBC 4.46 (3.65-5.03) M/mm3 Hgb 13.4 (11.8-15.2) gm/dl Hct 41.0 (35.5-45.6) % MCV 92 (84-94) fl MCH 30 (28-32) pg MCHC 33 (32-34) % RDW 13.7 (13.2-15.2) % Plt Count 218 (140-440) K/mm3 Lymph % (Auto) 17.4 (13.4-35.0) % [place] % (Auto) 9.9 H (0.0-7.3) % Eos % (Auto) 1.3 (0.0-4.3) % Baso % (Auto) 0.5 (0.0-1.8) % Lymph # 2.0 (1.2-5.4) K/mm3 [place] # 1.2 H (0.0-0.8) K/mm3 Eos # 0.2 (0.0-0.4) K/mm3 Baso # 0.1 (0.0-0.1) K/mm3 Seg Neutrophils % 70.9 H (40.0-70.0) % Seg Neutrophils # 8.3 H (1.8-7.7) K/mm3 Sodium 138 (137-145) mmol/L Potassium 4.1 (3.6-5.0) mmol/L Chloride 98.6 (98-107) mmol/L Carbon Dioxide 26 (22-30) mmol/L Anion Gap 18 mmol/L BUN 14 (9-20) mg/dL Creatinine 0.7 L (0.8-1.5) mg/dL Estimated GFR > 60 ml/min BUN/Creatinine Ratio 20 % Glucose 137 H (75-100) mg/dL POC Glucose 168 H (70-105) Calcium 8.9 (8.4-10.2) mg/dL Total Bilirubin 0.20 (0.1-1.2) mg/dL AST 36 (5-40) units/L ALT 54 (7-56) units/L Alkaline Phosphatase 96 (35-129) units/L Total Protein 6.9 (6.3-8.2) g/dL Albumin 3.7 L (3.9-5) g/dL Albumin/Globulin Ratio 1.2 % Lipase 17 (13-60) units/L Urine Color (Yellow) Urine Turbidity (Clear) Urine pH (5.0-7.0) Ur Specific Imogene (1.003-1.030) Urine Protein (Negative) mg/dL Urine Glucose (UA) (Negative) mg/dL Urine Ketones (Negative) mg/dL Urine Blood (Negative) Urine Nitrite (Negative) Urine Bilirubin (Negative) Urine Urobilinogen (<2.0) mg/dL Ur Leukocyte Esterase (Negative) Urine WBC (Auto) (0.0-6.0) /HPF Urine RBC (Auto) (0.0-6.0) /HPF 11/13/18 Range/Units Unknown WBC (4.5-11.0) K/mm3 RBC (3.65-5.03) M/mm3 Hgb (11.8-15.2) gm/dl Hct (35.5-45.6) % MCV (84-94) fl MCH (28-32) pg MCHC (32-34) % RDW (13.2-15.2) % Plt Count (140-440) K/mm3 Lymph % (Auto) (13.4-35.0) % [place] % (Auto) (0.0-7.3) % Eos % (Auto) (0.0-4.3) % Baso % (Auto) (0.0-1.8) % Lymph # (1.2-5.4) K/mm3 [place] # (0.0-0.8) K/mm3 Eos # (0.0-0.4) K/mm3 Baso # (0.0-0.1) K/mm3 Seg Neutrophils % (40.0-70.0) % Seg Neutrophils # (1.8-7.7) K/mm3 Sodium (137-145) mmol/L Potassium (3.6-5.0) mmol/L Chloride (98-107) mmol/L Carbon Dioxide (22-30) mmol/L Anion Gap mmol/L BUN (9-20) mg/dL Creatinine (0.8-1.5) mg/dL Estimated GFR ml/min BUN/Creatinine Ratio % Glucose (75-100) mg/dL POC Glucose (70-105) Calcium (8.4-10.2) mg/dL Total Bilirubin (0.1-1.2) mg/dL AST (5-40) units/L ALT (7-56) units/L Alkaline Phosphatase (35-129) units/L Total Protein (6.3-8.2) g/dL Albumin (3.9-5) g/dL Albumin/Globulin Ratio % Lipase (13-60) units/L Urine Color Straw (Yellow) Urine Turbidity Clear (Clear) Urine pH 5.0 (5.0-7.0) Ur Specific Imogene 1.009 (1.003-1.030) Urine Protein <15 mg/dl (Negative) mg/dL Urine Glucose (UA) Neg (Negative) mg/dL Urine Ketones Neg (Negative) mg/dL Urine Blood Neg (Negative) Urine Nitrite Neg (Negative) Urine Bilirubin Neg (Negative) Urine Urobilinogen < 2.0 (<2.0) mg/dL Ur Leukocyte Esterase Mod (Negative) Urine WBC (Auto) 26.0 H (0.0-6.0) /HPF Urine RBC (Auto) 1.0 (0.0-6.0) /HPF - Radiology Data Radiology results: report reviewed - Medical Decision Making Discussed results with patient and his father Critical care attestation.: If time is entered above; I have spent that time in minutes in the direct care of this critically ill patient, excluding procedure time. ED Disposition Clinical Impression: Rib fracture, Flank pain Disposition: DC- TO HOME OR SELFCARE Is pt being admited?: No Does the pt Need Aspirin: No Condition: Stable Instructions: Rib Fracture (ED), Flank Pain (ED) Additional Instructions: RETURN IF WORSE Prescriptions: ALBUTEROL Inhaler(NF) [VENTOLIN Inhaler(NF)] 2 puff IH Q4HR #1 inha HYDROcodone/APAP 5-325 [[place] 5/325] 1 each PO Q6HR PRN #15 tablet PRN Reason: Pain Referrals: PRIMARY CARE, [Primary Care Provider] - 3-5 Days [facility] [Provider Group] - 3-5 Days Time of Disposition: 15:32
[2018-11-13 14:20] LABS: Bilirubin,Urine NEG (Negative); Blood,Urine NEG (Negative); Color,Urine Straw (Yellow); Protein,Urine <15 mg/dL mg/dL (Negative); Urobilinogen,Urine < 2.0 mg/dL (<2.0)
--- NOTE | 2018-11-13 15:24 | Cat Scan Report ---
CT ABDOMEN PELVIS WITHOUT CONTRAST: HISTORY: Right flank pain. COMPARISON: none. TECHNIQUE: Helical CT in 1.25mm intervals without IV contrast. Sagittal and coronal reconstructions. FINDINGS: Lung bases: Normal. Liver: Normal. Biliary system: Normal. Pancreas: Normal. Spleen: Normal. Kidneys/ureters/bladder: Normal. Adrenal glands: Normal. Aorta: Normal. Intestines: Normal. Appendix: Normal. Ascites: None. Adenopathy: None. Musculoskeletal: A nondisplaced fracture of the right lateral 10th rib is suspected. This may be subacute. The remaining bony structures are intact. IMPRESSION: No acute inflammatory process. No evidence for nephrolithiasis. Nondisplaced right lateral 10th rib fracture, correlate with the patient.
[2018-11-13 15:43] VITALS: BP 112/80
== END 2018-11-13 15:44 | disposition home or self-care (01) ==
LOC: ED 10:52
DX: S22.39XA Fracture of one rib, unspecified side, initial encounter for closed fracture (principal); I10 Essential (primary) hypertension; E11.9 Type 2 diabetes mellitus without complications; F17.200 Nicotine dependence, unspecified, uncomplicated; Z79.899 Other long term (current) drug therapy; X58.XXXA Exposure to other specified factors, initial encounter; Y93.89 Activity, other specified; Y99.8 Other external cause status; Y92.89 Other specified places as the place of occurrence of the external cause
CPT/HCPCS: 36415; 74176; 80053; 81001; 82962; 83690; 85025; 96374; 96375; 99284; J2270; J2405